=== PATIENT | male | born 1980 | race Caucasian/White ===

== ENCOUNTER 2016-08-09 08:50 | Emergency (ER) | payer OTHER ==
[2016-08-09] MEDS ORDERED: DILAUDID 1 MG/ML AMP ONE (09:12)
[2016-08-09] MEDS ORDERED: METHYLPRED SOD SUCC 125 MG/2 ML VIAL ONE (09:13)
[2016-08-09] MEDS ORDERED: KETOROLAC 30 MG/ML VIAL ONE (10:09)
== END 2016-08-09 12:55 | disposition home or self-care (01) ==
LOC: ER 08:50
CPT/HCPCS: 72100 ×2; 72148 ×2; 96374 ×2; 96375 ×2; 99284; J1170; J1885; J2930